=== PATIENT | female | born 1955 | race Caucasian/White ===

== ENCOUNTER → 2016-08-20 | Outpatient (CLI) | payer OTHER | LOC: FIMAGING 11:21 → EDSTATUS 11:54 | PROVIDERS: ATTEND Orthopaedic Surgery | DX: R29.4 Clicking hip (principal); Z47.1 Aftercare following joint replacement surgery; Z96.642 Presence of left artificial hip joint ==

== ENCOUNTER → 2016-08-20 | Outpatient (CLI) | payer OTHER | LOC: FIMAGING 08:04 | PROVIDERS: ATTEND Internal Medicine Gastroenterology | DX: D50.9 Iron deficiency anemia, unspecified (principal); K21.9 Gastro-esophageal reflux disease without esophagitis ==

== ENCOUNTER → 2017-05-21 | Outpatient (CLI) | payer OTHER | LOC: FIMAGING 15:25 | PROVIDERS: ATTEND Internal Medicine | DX: Z12.31 Encounter for screening mammogram for malignant neoplasm of breast (principal) ==

== ENCOUNTER → 2018-07-04 | Outpatient (CLI) | payer OTHER | LOC: FIMAGING 09:48 | PROVIDERS: ATTEND Internal Medicine | DX: Z12.31 Encounter for screening mammogram for malignant neoplasm of breast (principal) ==